=== PATIENT | male | born 1965 | race American Indian/Alaskan Native ===

== ENCOUNTER 2016-05-15 06:28 | Day surgery (SDC) | payer OTHER ==
[2016-05-10 12:21] LABS: Basophils % (Auto) 0.5 % (0.0-1.8); Eosinophils % (Auto) 1.4 % (0.0-4.3); Hematocrit 40.3 % (35.5-45.6); Mean Corpuscular HGB Conc 32 % (32-34); Mean Corpuscular Hemoglobin 28 pg (28-32); Mean Corpuscular Volume 85 fl (84-94); Platelet Count 225 K/mm3 (140-440); Red Blood Count 4.73 M/mm3 (3.65-5.03); Red Cell Distribution Width 14.1 % (13.2-15.2); White Blood Count 7.7 K/mm3 (4.5-11.0)
[2016-05-10 12:27] LABS: INR 1.05 (0.87-1.13)
[2016-05-10 12:28] LABS: Partial Thromboplastin Time 28.5 Sec. (24.2-36.6)
[2016-05-10 14:44] LABS: Alanine Aminotransferase 16 units/L (7-56); Albumin 4.1 g/dL (3.9-5); Albumin/Globulin Ratio 1.4 %; Alkaline Phosphatase 81 units/L (35-129); Anion Gap 20 mmol/L; Bilirubin,Total 0.3 mg/dL (0.1-1.2); Blood Urea Nitrogen 10 mg/dL (9-20); Calcium 8.9 mg/dL (8.4-10.2); Carbon Dioxide 23 mmol/L (22-30); Chloride 101.6 mmol/L (98-107); Glucose 108 mg/dL (75-100); Potassium 3.9 mmol/L (3.6-5.0); Sodium 141 mmol/L (137-145); Total Protein 7.1 g/dL (6.3-8.2)
[~2016-05-15 06:28] MED LIST: MARCAINE-EPI 0.25%-1:200,000 IJ ONE
[2016-05-15] MEDS ORDERED: NACL BACTERIOSTATIC INFILTRATI ONE (06:57)
[2016-05-15] MEDS ORDERED: NACL 0.9% 1000 ML 1,000 ML IV SCH (07:00)
[2016-05-15] MEDS ORDERED: VANCOMYCIN/NS 1 GM/250 ML 1 GM/250 ML BAG IV NR (07:00)
[2016-05-15] MEDS ORDERED: VERSED IV NR (07:00)
[2016-05-15] MEDS ORDERED: PEPCID PO NR (07:00)
--- NOTE | 2016-05-15 07:30 | Anesthesia Day of Surgery ---
Anesthesia Day of Surgery - Day of Surgery Patient Examined: Yes Patient H&P Reviewed: Yes Patient is NPO: Yes Beta Blockers: No (n/a) Cardiac Clearance: No (n/a) Pulmonary Clearance: No (n/a)
--- NOTE | 2016-05-15 07:30 | Anesthesia Consultation ---
Anesthesia Consult and Med Hx Date of service: 05/15/16 - Airway Anesthetic Teeth Evaluation: Good ROM Head & Neck: Adequate Mental/Hyoid Distance: Adequate Mallampati Class: Class I Intubation Access Assessment: Good - Pulmonary Exam CTA: Yes (blbs clear) - Cardiac Exam Cardiac Exam: RRR - Pre-Operative Health Status ASA Pre-Surgery Classification: ASA1 Proposed Anesthetic Plan: General - Pulmonary Hx Smoking: Yes (OCC CIGARS) Hx Asthma: No Hx Respiratory Symptoms: No SOB: No COPD: No Home Oxygen Therapy: No Hx Pneumonia: No Hx Sleep Apnea: No (CASSIDY PRE SCREEN LOW RISK) - Cardiovascular System Hx Hypertension: No Hx Coronary Artery Disease: No Hx Heart Attack/AMI: No Hx Angina: No Hx Cardia Arrhythmia: No Hx Pacemaker: No Hx Internal Defibrillator: No Hx Valvular Heart Disease: No Hx Heart Murmur: No Hx Peripheral Vascular Disease: No - Central Nervous System Hx Neuromuscular Disorder: No Hx Seizures: No CVA: No Hx Back Pain: No Hx Psychiatric Problems: No - Gastrointestinal Hx Ulcer: No Hx Gastroesophageal Reflux Disease: No - Endocrine Hx Renal Disease: No Hx End Stage Renal Disease: No Hx Cirrhosis: No Hx Liver Disease: No Hx Insulin Dependent Diabetes: No Hx Non-Insulin Dependent Diabetes: No Hx Thyroid Disease: No Hx Hypothyroidism: No Hx Hyperthyroidism: No - Other Systems Hx Cancer: No - Additional Comments Anesthesia Medical History Comments: ponv
[2016-05-15] MEDS ORDERED: ZOFRAN IV PRN (07:31)
[2016-05-15] MEDS ORDERED: SUBLIMAZE IV PRN (07:31)
[2016-05-15] MEDS ORDERED: DILAUDID IV PRN (07:31)
[2016-05-15] MEDS ORDERED: TRANSDERM-SCOP TD NR (08:00)
[2016-05-15] MEDS ORDERED: PEPCID IV NR (08:00)
[2016-05-15] MEDS ORDERED: ZOFRAN IV NR (08:00)
[2016-05-15] MEDS ORDERED: ZOFRAN ONE (08:28)
[2016-05-15] MEDS ORDERED: ROBINUL ONE (08:28)
[2016-05-15] MEDS ORDERED: XYLOCAINE MPF 2% ONE (08:28)
[2016-05-15] MEDS ORDERED: SUBLIMAZE ONE (08:29)
[2016-05-15] MEDS ORDERED: DIPRIVAN 10 MG/ML IV ONE (08:29)
[2016-05-15] MEDS ORDERED: DECADRON ONE (09:45)
[2016-05-15] MEDS ORDERED: MARCAINE-EPI 0.25%-1:200,000 IJ ONE (09:54)
[2016-05-15] MEDS ORDERED: BSS ONE (10:22)
[2016-05-15] MEDS ORDERED: MARCAINE-EPI/PF 0.25%-1:200,000 INFILTRATI ONE (10:26)
--- NOTE | 2016-05-15 10:36 | Post Anesthesia Evaluation ---
- Post Anesthesia Evaluation Patient Participated: Yes Airway Patent: Yes Stable Respiratory Function: Yes Nausea/Vomiting: No Temp > 96.8F: Yes Pain Manageable: Yes Adequeate Hydration: Yes Anesthesia Complications: No Block Receding Appropriately: Not Applicable Patient on Ventilator: No
--- NOTE | 2016-05-15 11:27 | Operative Report ---
PREOPERATIVE DIAGNOSIS: Left knee with degenerative joint disease meniscal tear. POSTOPERATIVE DIAGNOSES: 1. Left knee with extensive tear, medial meniscus. 2. Grade 4 chondromalacia, medial compartment. 3. Grade 3 chondromalacia, lateral femoral condyle. 4. 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 5. Synovitis, extensive. 6. Grade 2 chondromalacia patella. PROCEDURES PERFORMED: 1. Left knee arthroscopy with partial medial meniscectomy. 2. Extensive synovectomy. 3. Chondroplasty, trochlear groove. SURGEON: Amrik Washburn M.D. SULFUR CHLORIDE OPERATOR: Dayo Vaughan CSA ANESTHESIA: General. ESTIMATED BLOOD LOSS: Minimal. COMPLICATIONS: None. DESCRIPTION OF PROCEDURE: The patient underwent successful induction of anesthesia. Antibiotics were preadministered. Lower extremity exsanguinated, tourniquet inflated, carefully positioned in leg torres, prepped and draped in the usual fashion. Arthroscopy carried out with standard medial and lateral ports. Systematic exam demonstrated the findings noted. Synovectomy debrided tricompartmentally, general chondroplasty in the trochlear groove, full radius resector. [place] surface ____ chondral sparing ____ patella relatively well preserved, lateral compartment meniscus intact, grade 3 chondromalacia, diffuse and lateral femoral condyle with no unstable chondral flaps. Notch with normal ACL and PCL. Medial compartment with grade 4 chondromalacia, diffuse with markedly degenerative unstable flap tears in the meniscus and the posterior horn body debrided in combination of bites, ____. Next, a stable rim was achieved. This allowed preservation of the peripheral 40% of the posterior horn, near subtotal meniscectomy at the juncture of the posterior horn and body and the majority of the anterior horn well preserved. Thorough examination and irrigation of the ____ joint carried out in both portals. Intraoperative photos were obtained for documentation. Ports were closed with nylon sutures. A sterile dressing was applied. He was taken to the recovery room in satisfactory condition having tolerated the procedure well. JOB# [id number] RDP/NTS
[2016-05-15 11:36] VITALS: BP 126/78
== END 2016-05-15 11:45 | disposition home or self-care (01) ==
LOC: OR 06:28
PROVIDERS: ATTEND Orthopaedic Surgery
DX: S83.242A Other tear of medial meniscus, current injury, left knee, initial encounter (principal); M94.262 Chondromalacia, left knee; M65.862 Other synovitis and tenosynovitis, left lower leg; F17.290 Nicotine dependence, other tobacco product, uncomplicated; Z79.01 Long term (current) use of anticoagulants; X58.XXXA Exposure to other specified factors, initial encounter
CPT/HCPCS: 29881; 36415; 80053; 85025; 85610; 85730; J1100; J1170; J2250; J2405; J2704; J3010; J3370; J7030